=== PATIENT | male | born 1995 | race Caucasian/White ===

== ENCOUNTER → 2021-08-12 | Outpatient (CLI) | payer BC ==
--- NOTE | 2021-08-12 15:27 | NM ---
EXAMINATION TYPE: NM hepatobiliary w CCK DATE OF EXAM: 08/12/2021 COMPARISON: NONE HISTORY: R10.11 Upper quad pain Right TECHNIQUE: After the intravenous administration of 4.5 mCi Tc 99m Mebrofenin hepatobiliary scintigrap hy is performed. Immediate images post injection. FINDINGS: There is satisfactory initial accumulation of tracer by the liver. The gallbladder is visualized wit hin 8 minutes. The small bowel activity is noted within 22 minutes. At one hour CCK was administere d, patient was injected with 2.5 mcg of Kinevac, and gallbladder ejection fraction is calculated at 3 4%. IMPRESSION: Diminished gallbladder ejection fraction which may reflect chronic cholecystitis and/or b iliary dyskinesia.
== END | disposition home or self-care (01) ==
LOC: RADNMMAIN 12:53
PROVIDERS: ATTEND Family Medicine
DX: K82.8 Other specified diseases of gallbladder (principal)
CPT/HCPCS: 78227; A9537; J2805

== ENCOUNTER → 2022-04-27 | Outpatient (CLI) | payer BC ==
--- NOTE | 2022-04-27 16:35 | P.SLEEP ---
History of Present Illness DATE: 04/27/2022 CONSULTATION/NEW PATIENT EVALUATION HISTORY OF PRESENT ILLNESS/SLEEP-WAKE EVALUATION: 27year old lady gentleman had been evaluated in the sleep center for possible obstructive sleep apnea hypopnea syndrome. SLEEP SCHEDULE: Usually sleep schedule on weekdays from 8 PM to 4:50 AM, during days off from 10 PM to 6 AM. FALLING ASLEEP: Usually no problems with the falling asleep, although patient has TV set and bedroom. DURING SLEEP: Patient sleeps on the side position with snoring and witnessed episodes of stop breathing during the sleep by his girlfriend. Home sleep apnea test about the 6 months ago was negative for obstructive sleep apnea hypopnea syndrome. Test was done in another institution. No history of hypnogogical hallucinations, sleep paralysis, or cataplexy. Positive history of sleep talking. DURING THE DAY/WAKE STATE: In the morning patient wake up tired, falling asleep during the day, has problems with concentration, irritability, anxiety. [place] sleepiness scale is in extremely high range of 23. Patient may take 2 naps during the day. PAST MEDICAL HISTORY: Anxiety. PAST SURGICAL HISTORY: [place] tooth removed. MEDICATIONS: Lexapro 20 mg once a day, modafinil 200 mg day. SOCIAL HISTORY: Positive history of smoking for 7 pack years, quit 2 months ago , alcohol consumption occasional. FAMILY HISTORY: Sleep apnea, hypertension. REVIEW OF SYSTEMS: Snoring, significant sleepiness. No fevers. No double vision. No recent chest pain. No shortness of breath. No abdominal pain. No bleeding episodes. No blood in urine. No seizure episodes. PHYSICAL EXAMINATION: GENERAL: A pleasant patient without any distress. VITAL SIGNS: BP 138/84 , HR 73 , RR 16 , weight 295.0 pounds, height 5 foot 10 inches, body mass index 42.3 . HEENT: PERRLA, EOMI. Evaluation of oropharynx showed tongue protrudes midline, low position of soft palate Mallampati 3. NECK: Supple. No JVD. Thyroid is not palpable. 19-1/2 inches in circumference. LUNGS: Clear to percussion and to auscultation. Good air exchange. No wheezing or rhonchi. HEART: S1, S2 regular. No murmurs, gallops or rubs. ABDOMEN: Soft and nontender. Bowel sounds are present. No organomegaly appreciated. Obese EXTREMITIES: No clubbing or cyanosis. HORSE SHOW JUDGE: Awake, alert, and oriented x3. Cranial nerves 2 to 7 intact. There is no fasciculation or atrophy noted. No focal deficits observed. ASSESSMENT: 1. Snoring, witnessed episodes of stop breathing during the sleep, low position of soft palate Mallampati 3, extremely wide neck 19-1/2 inches in circumference, sleepiness with the possibly 2 naps a day. Obstructive sleep apnea hypopnea syndrome. Home sleep apnea test which was done in another institution about 6 months ago was negative for obstructive sleep apnea hypopnea syndrome. 2. Extremely significant sleepiness by [place] Sleepiness Scale of 23 dictated necessity to include hypersomnia and narcolepsy without cataplexy in differential diagnosis. 3 obesity body mass index 42.3. 4. Anxiety. 5 sleep talking. PLAN: 1. Polysomnography for evaluation of patient's breathing during sleep. 2. CPAP/BiPAP titration if sleep study confirms obstructive sleep apnea- hypopnea syndrome. 3. Preferable position during sleep on the side. 4. No driving if patient feels any sleepiness. Patient is aware of civil and criminal liability for unsafe driving. 5. Sleep hygiene with regular sleep time for at least 7.5-8 hours. 6. Watching and losing weight. 7. If sleep study will be negative for obstructive sleep apnea hypopnea syndrome we will consider multiple sleep latency test. Thank you very much for referring this patient for consultation. Sincerely, Arthur Garibay MD, PhD, FAASM. Diplomat of [place] [employer], Sleep Medicine Board by [place] [employer] [place] [employer] Shipping Inspector of [facility] [place] Past Medical History Past Medical History: No Reported History History of Any Multi-Drug Resistant Organisms: None Reported Past Surgical History: No Surgical Hx Reported Past Psychological History: Depression Smoking Status: Never smoker Past Alcohol Use History: Occasional Past Drug Use History: None Reported Medications and Allergies Home Medications Medication Instructions Recorded Confirmed Type Escitalopram [Lexapro] 20 mg PO DAILY 07/31/21 07/31/21 History Famotidine [Pepcid] 20 mg PO BID #60 tablet 07/31/21 Rx Omeprazole [PriLOSEC] 20 mg PO AC-BRKFST #30 cap 07/31/21 Rx Sucralfate [Carafate] 1 gm PO ACHS #56 tablet 07/31/21 Rx Allergies Allergy/AdvReac Type Severity Reaction Status Date / Time No Known Allergies Allergy Verified 07/31/21 21:08 Sleep Note - Sleep Note Sleep Note: Temperature: Pulse Rate: Respiratory Rate: Blood Pressure: SpO2: Height: Weight: BMI: Neck Circumference:
== END ==
LOC: SLEEP 15:48
PROVIDERS: ATTEND Internal Medicine
DX: G47.33 Obstructive sleep apnea (adult) (pediatric) (principal); E66.9 Obesity, unspecified; F41.9 Anxiety disorder, unspecified; Z68.41 Body mass index [BMI] 40.0-44.9, adult; Z99.89 Dependence on other enabling machines and devices
CPT/HCPCS: 99211

== ENCOUNTER → 2023-02-07 | Outpatient (CLI) | payer BC ==
--- NOTE | 2023-02-07 13:51 | P.PN ---
Subjective DATE: 02/07/2023 FOLLOW UP VISIT. Patient with obstructive sleep apnea hypopnea syndrome return to sleep center for follow-up visit. Information from previous visit have been reviewed. Patient is using PAP equipment every night for the whole night, getting PAP supplies in time. The patient does not have significant problems with the mask, PAP unit and humidification. [place] sleepiness scale is 7, which is normal. I checked information from PAP unit. PAP unit pressure 5-15, average 9.2 cm H2O. Usage is 87% and 80 % for more then 4 hours, average 7 hours per night. Leak is 6.9 l/m, which is in acceptable range. Apnea Hypopnea Index is 0.7, which is normal. MEDICATIONS:1. Adderall XR 25 mg once a day 2. Lexapro 20 mg once a day During physical exam: GENERAL: A pleasant patient without any distress. VITAL SIGNS: BP 156/93, HR 60, RR 12, weight 275.8, temperature 98.1, oxygen saturation at room air 99 % . HEENT: PERRLA, EOMI.low position of soft palate, Mallapati 3 . NECK: Supple. No JVD. LUNGS: Clear to percussion and to auscultation. Good air exchange. No wheezing or rhonchi. HEART: S1, S2 regular. ABDOMEN: Soft and nontender. Obese EXTREMITIES: No clubbing or cyanosis. OVEN TENDER BAGELS: Awake, alert, and oriented x3. No focal deficit. Impressions: 1. Obstructive sleep apnea-hypopnea syndrome. Patient demonstrated great compliance with treatment, benefiting from treatment. 2. Obesity, patient lost 10 pounds comparing with previous visit, BMI 40.6. 3. History of anxiety. 4. History of sleep talking. Plan: 1. Continue using PAP equipment every night for the whole night. 2. To change air filter at least 1-2 times per month. 3. PAP unit should stay lower then position of the head. 4. Advised patient to remove all remaining water from humidifier canister daily and make it dry after each usage. Refill canister with fresh distilled water before each usage. 5. Sleep hygiene with regular time in bed for at least 8 hours. 6. Precautions related to driving. No driving if feel any sleepiness. 7. I will maintain prescription for PAP supplies including mask, tube, filters. 8. Watching and continue losing weight. 9. Follow up visit in 6 months or earlier if patient has any problems. Thank you very much for allowing me to participate in the management of your patient. Arthur Garibay MD, PhD, FAASM. Diplomat of [place] Board of Sleep Medicine, Sleep Medicine Board by [place] Board of Internal Medicine Stud Beef Cattle Farmer of [facility] [place]
== END ==
LOC: 3 N SLEEP 13:12
PROVIDERS: ATTEND Internal Medicine
DX: G47.33 Obstructive sleep apnea (adult) (pediatric) (principal); E66.9 Obesity, unspecified; F41.9 Anxiety disorder, unspecified; Z68.41 Body mass index [BMI] 40.0-44.9, adult; Z99.89 Dependence on other enabling machines and devices
CPT/HCPCS: 99212

== ENCOUNTER → 2023-08-29 | Outpatient (CLI) | payer BC ==
[2023-08-29 17:24] VITALS: BP 132/81; PULSE 72; RESP 16; TEMP 98.1
--- NOTE | 2023-08-29 17:45 | P.PN ---
Subjective DATE: 08/29/2023 FOLLOW UP VISIT. Patient with obstructive sleep apnea hypopnea syndrome return to sleep center for follow-up visit. Information from previous visit have been reviewed. Patient is using PAP equipment every night for the whole night, getting PAP supplies in time. The patient does not have significant problems with the mask, PAP unit and humidification. [place] sleepiness scale is 6, which is normal. I checked information from PAP unit. PAP unit pressure 5-15, average 9.2 cm H2O. Usage is 93% for more then 4 hours, average 7.5 hours per night. Leak is 2.9 l/m, which is in acceptable range. Apnea Hypopnea Index is 0.8, which is normal. MEDICATIONS:1. Lexapro 20 mg once a day 2. Adderall XR 20 mg once a day During physical exam: GENERAL: A pleasant patient without any distress. VITAL SIGNS: Please see below. HEENT: PERRLA, EOMI.low position of soft palate, Mallapati[] . NECK: Supple. No JVD. LUNGS: Clear to percussion and to auscultation. Good air exchange. No wheezing or rhonchi. HEART: S1, S2 regular. ABDOMEN: Soft and nontender.[] EXTREMITIES: No clubbing or cyanosis. MORTGAGE ACCOUNTING CLERK: Awake, alert, and oriented x3. No focal deficit. Impressions: 1. Obstructive sleep apnea-hypopnea syndrome. Patient demonstrated great compliance with treatment, benefiting from treatment. 2. History of ADHD. 3. History of anxiety. 4. History of sleep talking. 5. Obesity, patient increased weight on 11 pounds comparing with previous visit. Plan: 1. Continue using PAP equipment every night for the whole night. 2. To change air filter at least 1-2 times per month. 3. PAP unit should stay lower then position of the head. 4. Advised patient to remove all remaining water from humidifier canister daily and make it dry after each usage. Refill canister with fresh distilled water before each usage. 5. Sleep hygiene with regular time in bed for at least 8 hours. 6. Precautions related to driving. No driving if feel any sleepiness. 7. I will maintain prescription for PAP supplies including mask, tube, filters. 8. Follow up visit in 6 months or earlier if patient has any problems. 9. Watching and losing weight. Thank you very much for allowing me to participate in the management of your patient. Arthur Garibay MD, PhD, FAASM. Diplomat of [place] [employer] Medicine, Sleep Medicine Board by [place] [employer] Medicine Veterinary Nurse of [facility] [place] Objective - Vital Signs Vital signs: Vital Signs Temp 98.1 F 08/29/23 17:03 Pulse 72 08/29/23 17:03 Resp 16 08/29/23 17:03 BP 132/81 08/29/23 17:03 Pulse Ox 96 08/29/23 17:03 FiO2 Intake & Output 08/28/23 08/29/23 08/29/23 18:59 06:59 18:59 Weight 129.727 kg
== END ==
LOC: 3 N SLEEP 16:17
PROVIDERS: ATTEND Internal Medicine
DX: G47.33 Obstructive sleep apnea (adult) (pediatric) (principal); F90.9 Attention-deficit hyperactivity disorder, unspecified type; F41.9 Anxiety disorder, unspecified; E66.9 Obesity, unspecified; G47.8 Other sleep disorders; Z79.899 Other long term (current) drug therapy; Z99.89 Dependence on other enabling machines and devices
CPT/HCPCS: 99212

== ENCOUNTER → 2024-04-02 | Outpatient (CLI) | payer BC ==
[2024-04-02 16:09] VITALS: BP 130/27; PULSE 70; RESP 16; TEMP 98.1
--- NOTE | 2024-04-02 16:25 | P.PROGSL ---
Subjective DATE: 04/02/2024 FOLLOW UP VISIT. Patient with obstructive sleep apnea hypopnea syndrome return to sleep center for follow-up visit. Information from previous visit have been reviewed. Patient is using PAP equipment every night for the whole night, getting PAP supplies in time. The patient does not have significant problems with the mask, PAP unit and humidification. [place] sleepiness scale is 9, which is in normal range. I checked information from PAP unit. PAP unit pressure 5-15, average 10.0 cm H2O. Usage is 95% for more then 4 hours, average 7.3 hours per night. Leak is 10 l/m, which is in acceptable range. Apnea Hypopnea Index is 0.5, which is normal. MEDICATIONS have been reviewed, please see below. During physical exam: GENERAL: A pleasant patient without any distress. VITAL SIGNS: Please see below, weight is 296 lbs. HEENT: PERRLA, EOMI.low position of soft palate, Mallapati 3. NECK: Supple. No JVD. LUNGS: Clear to percussion and to auscultation. Good air exchange. No wheezing or rhonchi. HEART: S1, S2 regular. ABDOMEN: Soft and nontender. Slightly obese EXTREMITIES: No clubbing or cyanosis. KNITTING MACHINE MECHANIC: Awake, alert, and oriented x3. No focal deficit. Impressions: 1. Obstructive sleep apnea-hypopnea syndrome. Patient demonstrated great compliance with treatment, benefiting from treatment. 2. Obesity, BMI 43.0. 3. History of ADHD. 4. History of anxiety. 5. History of sleep talking. Plan: 1. Continue using PAP equipment every night for the whole night. 2. Sleep hygiene with regular time in bed for at least 7.5-8 hours 3. PAP unit should stay lower then position of the head. 4. Advised patient to remove all remaining water from humidifier canister daily and make it dry after each usage. Refill canister with fresh distilled water before each usage. 5. Watching weight. 6. Precautions related to driving. No driving if feel any sleepiness. 7. I will maintain prescription for PAP supplies including mask, tube, filters. 8. Follow up visit in 6 months or earlier if patient has any problems. Thank you very much for allowing me to participate in the management of your patient. Arthur Garibay MD, PhD, FAASM. Diplomat of [place] Board of Sleep Medicine, Sleep Medicine Board by [place] Board of Internal Medicine Mix House Operator of [facility] [place] Objective - Vital Signs Vital Signs: Vital Signs Temp 98.1 F 04/02/24 16:08 Pulse 70 04/02/24 16:08 Resp 16 04/02/24 16:08 BP 130/27 04/02/24 16:08 Pulse Ox 97 04/02/24 16:08 FiO2 Intake & Output 04/01/24 04/02/24 04/02/24 18:59 06:59 18:59 Weight 134.263 kg Home Medications: Home Medications Medication Instructions Recorded Confirmed Type Escitalopram [Lexapro] 20 mg PO DAILY 07/31/21 04/02/24 History Dextroamphetamine/Amphetamine 20 mg PO DAILY 08/29/23 08/29/23 History [Adderall Xr 20 mg Capsule]
== END ==
LOC: 3 N SLEEP 15:43
PROVIDERS: ATTEND Internal Medicine
CPT/HCPCS: 99212

== ENCOUNTER → 2024-08-14 | Outpatient (CLI) | payer BC ==
--- NOTE | 2024-08-14 10:20 | XR ---
EXAMINATION TYPE: XR ankle complete LT DATE OF EXAM: 08/14/2024 9:57 AM COMPARISON: None. CLINICAL INDICATION: Male, 29 years old with history of [id number] LT ANKLE PAIN, pain TECHNIQUE: 3 view(s) obtained. FINDINGS: No acute fracture or dislocation evident. Ankle mortise is intact. Soft tissues appear normal. Second yvette ossification centers are inferior to the medial malleolus. Follow up exams can be performed 7-10 days from acute trauma for continued pain. IMPRESSION: 1. No acute osseous abnormality left ankle [facility], , 08/14/2024 10:18 AM
== END | disposition home or self-care (01) ==
LOC: RADXRYALE 09:39
PROVIDERS: ATTEND Physician Assistant
DX: M25.572 Pain in left ankle and joints of left foot (principal)